=== PATIENT | female | born 1965 | race Caucasian/White ===

== ENCOUNTER 2016-09-26 07:01 | Emergency (ER) | payer OTHER ==
[2016-09-26 07:14] VITALS: BP 124/77
--- NOTE | 2016-09-26 22:26 | UC ---
brant Salas Timothy, scribed for Gretel Manjarrez MD on 09/26/16 at 0725 . Complaint Female HPI - HPI Summary HPI Summary: Brigitte Stapleton is a 51 yo female presenting to [facility] with UTI Sx including intermittent fever, highest of 101.4, since 09/20/16 with accompanying frontal FERRARA and fatigue with nausea. She also notes dysuria since yesterday, and per triage her urine looks cloudy. She notes some left-sided neck pain. She denies any dizziness, sore throat, CP, SOB, diarrhea, vomiting, vaginal discharge, rash. She notes that she has noticed some mild spotting recently which was very dark in color. She has self-medicated with ibuprofen with some relief. Her MHx includes RLE Fx and mammogram 01/28/15. Her LNMP was in May of this year. - History Of Current Complaint Stated Complaint: UTI COMPLAINT Time Seen by Provider: 09/26/16 07:07 Hx Obtained From: Patient Hx Last Menstrual Period: 04/03/13 Onset/Duration: Gradual Onset, Lasting Days, Still Present Timing: Intermittent, Lasting Days Severity Initially: Moderate Severity Currently: Moderate Aggravating Factor(s): Urination Associated Signs And Symptoms: Positive: Fever - Allergies/Home Medications Allergies/Adverse Reactions: Allergies Allergy/AdvReac Type Severity Reaction Status Date / Time No Known Allergies Allergy Verified 02/11/13 08:54 PMH/Surg Hx/FS Hx/Imm Hx - Surgical History Surgical History: Yes Surgery Procedure, Year, and Place: Right leg repair due to fracture - Family History Known Family History: Positive: Cardiac Disease, Diabetes Negative: Hypertension - Social History Alcohol Use: None Substance Use Type: None Smoking Status (MU): Never Smoked Tobacco Review of Systems Constitutional: Fever, Fatigue Skin: Negative Eyes: Negative ENT: Negative Respiratory: Negative Cardiovascular: Negative Gastrointestinal: Other - nausea Genitourinary: Dysuria, Other - dark colored spotting Motor: Negative Neurovascular: Negative Musculoskeletal: Negative Neurological: Headache Psychological: Negative All Other Systems Reviewed And Are Negative: Yes Physical Exam Triage Information Reviewed: Yes Vital Signs: Initial Vital Signs Temp 98.8 F 09/26/16 07:07 Pulse 74 09/26/16 07:07 Resp 16 09/26/16 07:07 BP 124/77 09/26/16 07:07 Pulse Ox 100 09/26/16 07:07 Vital Signs Reviewed: Yes - Additional Comments Constitutional: Pt is awake, A&Ox3, in no acute distress,and cooperative. HENT: atraumatic, MARCOS, normal TMs and canals bilaterally with no discharge. The nose shows no discharge or lesions. No sinus tenderness. No meningeal or meningismus signs. Throat: pink, no purulence, teeth in good repair. Neck: supple, no masses or adenopathy, no JVD, no thyromegaly, nontender. Respiratory: Lungs CTA bilaterally Cardiovascular: RRR, no murmur. Abd: soft, mild suprapubic tenderness, no masses, no organomegaly, Bowel Sounds: present and normal Musculoskeletal: Full ROM, good color to extremities, good tone, power 5/5 in all extremities Neuro: AOx3, cooperative, coherent Skin: clear, good turgor Re-Evaluation - Re-Evaluation First Eval Re-Evaluation Time: 08:00 Change: Unchanged Comment: Pelvic Exam was performed with nurse present as witness. Exam suggests normal external genitalia with no lesions. Vagina has normal ruggae, no masses no lesion. There is old brown bloody discharge. Cervix is closed, firm, and nontender. There is no tenderness to cervical motion. Uterine adnexa have no masses or tenderness. Uterus is small and nontender with no masses. Complaint Female Dx - Course Course Of Treatment: Brigitte Stapleton is a 51 yo female presenting to [facility] with intermittent fever and FERRARA since 09/20/16 and dysuria since 09/25/16. Her UA suggests trace ketones and is otherwise WNL. Her test is negative. Her Group A Rapid Strep Test is negative. After clinical examination and review of her lab studies, cultures of her urine and throat samples will be taken and analyzed and she will be discharged at this time with head ache and fever with appropriate instructions. - Differential Dx/Diagnosis Differential Diagnosis/HQI/PQRI: Urinary Tract Infection Provider Diagnoses: Head ache, fever Discharge - Discharge Plan Condition: Stable Disposition: HOME Patient Education Materials: Acute Headache (ED), Fever in Adults (ED) Referrals: Ally Rankin MD [Primary Care Provider] - 2 Days Additional Instructions: Please follow up with your primary care physician regarding your visit to urgent care today. Continue taking ibuprofen or tylenol as needed to treat your head ache and fever. There are cultures being performed on your urine and throat samples, which we will contact you with e results of if a change in treatment is necessary. Please do your best to drink fluids and stay hydrated! Return to urgent care or the emergency department with any new or worsening symptoms. The documentation as recorded by the brant montano Timothy accurately reflects the service I personally performed and the decisions made by me, Gretel Manjarrez MD.
--- NOTE | 2016-09-27 18:35 | UC ---
Progress - Progress Note Progress Note: Affirm swab positive for bacterial vaginosis. Clindamycin suppositories prescribed, sent into [facility]. Please call pt and inform her that the rest of the tests that we have back are normal. Re-Evaluation - Re-Evaluation First Eval Re-Evaluation Time: 08:00 Change: Unchanged Comment: Pelvic Exam was performed with nurse present as witness. Exam suggests normal external genitalia with no lesions. Vagina has normal ruggae, no masses no lesion. There is old brown bloody discharge. Cervix is closed, firm, and nontender. There is no tenderness to cervical motion. Uterine adnexa have no masses or tenderness. Uterus is small and nontender with no masses.
== END 2016-09-26 08:39 | disposition home or self-care (01) ==
LOC: UCEAST 07:01
DX: R51 Headache (principal)
CPT/HCPCS: 81003; 84702; 87480; 87491; 87510; 87591; 87651; 87661; 99212; G0463